=== PATIENT | female | born 1985 | race African-American/Black ===

== ENCOUNTER 2023-05-27 19:09 | Emergency (ER) | payer MEDICAID ==
[~2023-05-27] VITALS: Ht 168.9 cm; Wt 105.1 kg
[2023-05-27 19:36] VITALS: BP 125/76; O2SAT 100
[2023-05-27 20:17] VITALS: PULSE 72; RESP 18; TEMP 98.7
== END 2023-05-27 20:19 | disposition home or self-care (01) ==
LOC: ER 19:09
DX: R10.2 Pelvic and perineal pain (principal); R10.9 Unspecified abdominal pain
CPT/HCPCS: 81025; 99284; Z7610 ×2